=== PATIENT | female | born 1990 | race Caucasian/White ===

== ENCOUNTER 2023-09-17 15:35 | Emergency (ER) | payer MEDICAID ==
[~2023-09-17] VITALS: Ht 162.6 cm; Wt 62.0 kg
[2023-09-17 15:39] VITALS: BP 127/81; PULSE 82; O2SAT 98
[2023-09-17] MEDS ORDERED: DOXY-1 PO (16:46)
[2023-09-17] MEDS ORDERED: NAPR-56 PO (16:46)
[2023-09-17] MEDS ORDERED: ketorolac trometh. 30mg/ml inj. IM ONE (16:50)
[2023-09-17] MEDS ORDERED: ketorolac tromethamine 15mg/ml inj. IM ONE (16:50)
[2023-09-17] MEDS: ketorolac trometh. 30mg/ml inj. IM ONE (16:58)
[2023-09-17 17:04] VITALS: RESP 16; TEMP 98.7
== END 2023-09-17 17:10 | disposition home or self-care (01) ==
LOC: ER 15:37
DX: K04.7 Periapical abscess without sinus (principal)
CPT/HCPCS: 96372; 99283; J1885

== ENCOUNTER 2024-04-27 01:33 | Emergency (ER) | payer MEDICAID ==
[~2024-04-27] VITALS: Ht 157.5 cm; Wt 66.8 kg
[2024-04-27] MEDS ORDERED: AMOX-580 PO (02:56)
[2024-04-27] MEDS ORDERED: NAPR-56 PO (02:56)
[2024-04-27] MEDS: amox tr/potassium clavulanate 875/125mg TAB PO ONE (03:17)
[2024-04-27] MEDS: naproxen 500mg tablet PO ONE (03:18)
[2024-04-27] MEDS: HYDROcodone/acetaminophen 10/325mg tab PO ONE (03:18)
[2024-04-27 03:20] VITALS: BP 105/46; PULSE 71; RESP 20; TEMP 98.6; O2SAT 98
== END 2024-04-27 03:21 | disposition home or self-care (01) ==
LOC: ER 01:34
DX: K02.9 Dental caries, unspecified (principal); K04.7 Periapical abscess without sinus; Z79.899 Other long term (current) drug therapy
CPT/HCPCS: 99284